=== PATIENT | female | born 1995 | race Caucasian/White ===

== ENCOUNTER 2017-08-20 14:34 | Emergency (ER) | payer SELFPAY ==
[~2017-08-20] VITALS: Ht 160 cm; Wt 64.0 kg
[~2017-08-20 14:34] MED LIST: MOTRIN800 MG PO; NORCO 5/3251 TABLET PO
[2017-08-20 16:11] LABS: HEMATOCRIT 45.3 % (36.0-46.0); HEMOGLOBIN 15.2 G/DL (11.9-15.5); MCH 29.7 PG (29.0-34.0); MCHC 33.6 G/DL (30.0-36.0); MCV 88.5 FL (83-99); PLATELET COUNT 228 K/uL (156-360); RBC DIS.WIDTH-SD 39.1 % (39-53); RED BLOOD COUNT 5.12 M/uL (3.80-5.20); WHITE BLOOD COUNT 9.5 K/uL (4.1-10.2)
[2017-08-20 16:21] LABS: CHLORIDE 101 mEq/L (99-109); POTASSIUM 4.4 mEq/L (3.7-5.4); SODIUM 140 mEq/L (136-147)
[2017-08-20 16:22] LABS: GLUCOSE 101 mg/dL (70-99)
[2017-08-20 16:26] LABS: CREATININE 0.8 mg/dL (0.6-1.3); GFR ESTIMATE (CALCULATED) > 59 mL/min/
[2017-08-20 16:27] LABS: UREA NITROGEN (BUN) 18 mg/dL (9-23)
[2017-08-20 16:36] LABS: QUANTITATIVE HCG < 4.0 MIU/ML
[2017-08-20 16:58] LABS: APPEARANCE SL.HAZY ((CLEAR)); BILIRUBIN SMALL; BLOOD NEGATIVE; COLOR YELLOW ((YELLOW)); GLUCOSE (STRIP) NEGATIVE; KETONES NEGATIVE; LEUKOCYTES TRACE; NITRITE POSITIVE; PROTEIN (STRIP) 100
[2017-08-20 17:05] LABS: BACTERIA 3+ /HPF; EPITHELIAL CELLS 1+ /HPF; MUCUS 2+ /LPF; WHITE BLOOD CELLS 0-5 /HPF (0-5)
[2017-08-20] MEDS ORDERED: ZOFRAN ODT4 MG PO (17:14)
[2017-08-20] MEDS ORDERED: BACTRIM,SEPT1 TABLET PO (17:14)
[2017-08-20 17:17] VITALS: BP 115/69
== END 2017-08-20 17:23 | disposition home or self-care (01) ==
LOC: EME 14:34
PROVIDERS: Nurse Practitioner Family
DX: N39.0 Urinary tract infection, site not specified (principal); R11.2 Nausea with vomiting, unspecified; R51 Headache; F17.200 Nicotine dependence, unspecified, uncomplicated
CPT/HCPCS: 80048; 81003; 84702; 85027; 99281; 99283